=== PATIENT | male | born 1955 | race Caucasian/White ===

== ENCOUNTER → 2021-08-28 16:57 | Outpatient (CLI) | payer OTHER, SELFPAY ==
--- NOTE | 2021-08-28 17:01 | DI.RAD.S_ITS ---
PROCEDURE: XR CERVICAL SPINE 2V OR 3V INDICATIONS: increasing neck pain 5 day, self splint no injury TECHNIQUE: 3 view(s) of the cervical spine were acquired. COMPARISON: None. FINDINGS: Bones: No fractures or dislocations to the C7-T1 level. The lateral masses of C1 appear intact on the odontoid view. No suspicious bony lesions. There is mild disc space narrowing seen at the C6-C7 level. The disc heights otherwise appear well-preserved. Soft tissues: No prevertebral soft tissue swelling. The visualized lung apices are unremarkable. IMPRESSION: Focal mild C6-C7 degenerative change can be seen. If it would be helpful for clinical management decision making, please consider a dedicated cervical spine MRI for further evaluation (assuming that there is no contraindication). Dictated by: Sonny Bell M.D. on 08/28/2021 at 16:12 Approved by: Sonny Bell M.D. on 08/28/2021 at 16:13
== END ==
PROVIDERS: PCP Physician Assistant; Referring Provider Student in an Organized Health Care Education/Training Program; Visit Provider Student in an Organized Health Care Education/Training Program
DX: M54.2 Cervicalgia (principal); M47.812 Spondylosis without myelopathy or radiculopathy, cervical region
CPT/HCPCS: 72040